=== PATIENT | female | born 1970 | race African-American/Black ===

== ENCOUNTER 2017-12-10 21:00 | Observation (INO) | payer MEDICAID, SELFPAY ==
[2017-12-10 22:01] LABS: #Basophils 0.1 thou/uL (0.0-0.2); #Eosinphils 0.1 thou/uL (0.0-0.7); #Monocytes 0.5 thou/uL (0.11-0.59); #Neutrophils 5.7 thou/uL (1.40-6.50); %Eosinophils 1.3 % (0.0-10.0); %Monocytes 5.9 % (0.0-10.0); %Neutrophils 67.9 % (42.0-75.0); Hemoglobin 10.6 g/dL (12.0-16.0); Mean Corpuscular HGB CONC 33.7 g/dL (32.0-36.0); Mean Corpuscular Hemoglobin 33.7 pg (27.0-31.0); Platelet Count 317 thou/uL (130-400); RBC Distribution Width 13.2 % (11.5-14.5); Red Blood Cell (RBC) Count 3.14 mill/uL (4.20-5.40); White Blood Cell (WBC) Count 8.4 thou/uL (4.8-10.8)
--- NOTE | 2017-12-10 22:22 | RAD ---
RIGHT KNEE FOUR VIEWS 12/10/17 HISTORY: Pain. Swelling. FINDINGS: Joint spaces are preserved. No joint effusion. No fracture. No malalignment. IMPRESSION: Unremarkable four views right knee. POS: [facility]
[2017-12-10 22:23] LABS: ALT (SGPT) 16 U/L (8-55); AST (SGOT) 34 U/L (5-34); Albumin 4.2 g/dL (3.5-5.0); Alkaline Phosphatase 190 U/L (40-150); Anion Gap 20 mmol/L (10-20); BUN (Urea Nitrogen) 24 mg/dL (7.0-18.7); Bilirubin, Total 0.3 mg/dL (0.2-1.2); Calc. Creatinine Clearance 0 mL/min (70-130); Calcium 7.4 mg/dL (7.8-10.44); Carbon Dioxide 14 mmol/L (22-29); Chloride 108 mmol/L (98-107); Estimated GFR-MDRD 30; Globulin 3.9 g/dL (2.4-3.5); Glucose 71 mg/dL (70-105); Potassium 4.1 mmol/L (3.5-5.1); Protein, Total 8.1 g/dL (6.0-8.3); Sodium 138 mmol/L (136-145)
[2017-12-10] MEDS ORDERED: Acetaminophen 325 MG TAB ONE (22:24)
--- NOTE | 2017-12-10 22:24 | RAD ---
RIGHT ANKLE THREE VIEWS: 12/10/17 HISTORY: Pain. Swelling. COMPARISON: 05/19/14 FINDINGS: Chronic changes of the right ankle. There is sclerosis of the talar dome with flattening and lucency along the talar dome, unchanged. Stable degenerative changes of the talonavicular joint space. An acu te fracture is not appreciated. IMPRESSION: Chronic changes as above. POS: [facility]
--- NOTE | 2017-12-10 22:25 | RAD ---
LEFT KNEE FOUR VIEWS 12/10/17 HISTORY: Pain. Swelling. FINDINGS: Joint space is preserved. No joint effusion. No fracture or malalignment. IMPRESSION: Unremarkable four views left knee. POS: [facility]
--- NOTE | 2017-12-10 22:25 | RAD ---
RIGHT TIBIA AND FIBULA TWO VIEWS 12/10/17 HISTORY: Swelling and pain. COMPARISON: None. FINDINGS: Distal tibia and fibula are included on the ankle radiograph. Visualized right tibia and fibula do no t identify a fracture. No periosteal reaction. IMPRESSION: Unremarkable exam. POS: [facility]
[2017-12-10 22:26] LABS: CKMB 0.8 ng/mL (0-6.6); Troponin I Less than 0.010 ng/mL (< 0.028)
--- NOTE | 2017-12-10 22:26 | RAD ---
TWO VIEWS LEFT TIBIA AND FIBULA 12/10/17 HISTORY: Pain and swelling. COMPARISON: None. FINDINGS: No fracture. No cortical irregularity. No periosteal reaction. IMPRESSION: Unremarkable two views left tibia and fibula. POS: [facility]
[2017-12-11] MEDS ORDERED: hydrALAZINE 20 MG/ML VIAL SLOW IVP PRN (02:17)
[2017-12-11] MEDS ORDERED: Zolpidem Tartrate 5 MG TAB PO SCH (02:30)
[2017-12-11] MEDS ORDERED: Chloraseptic Spray 180 ml Bottle PO PRN (02:47)
[2017-12-11] MEDS ORDERED: Ondansetron ODT 4 MG TAB PO PRN (02:47)
[2017-12-11] MEDS ORDERED: Eucerin (Mineral Oil/Petrolatum,White) 30 gm Jar TOP PRN (02:47)
[2017-12-11] MEDS ORDERED: Milk Of Magnesia 30 ML UDCUP PO PRN (02:47)
[2017-12-11] MEDS ORDERED: Ondansetron HCl/PF 4 MG/2 ML Vial IVP PRN (02:47)
[2017-12-11] MEDS ORDERED: Artificial Tears 18 DROP/0.9 ML EA EYE PRN (02:47)
[2017-12-11] MEDS ORDERED: HYDROcodone/Acetaminophen 5/325 mg Tablet PO PRN (02:47)
[2017-12-11] MEDS ORDERED: Sodium Chloride 0.65% Nasal 44 ML BOT EA NARE PRN (02:47)
[2017-12-11] MEDS ORDERED: Diabetic Tussin 200 MG/10 ML UDCUP PO PRN (02:47)
[2017-12-11] MEDS ORDERED: cloNIDine 0.1 MG TAB PO PRN (02:47)
[2017-12-11] MEDS ORDERED: Mag-Al 1200 mg/1200 mg/30 ML UDCUP PO PRN (02:47)
[2017-12-11] MEDS ORDERED: Loperamide HCl 2 MG CAP PO PRN (02:47)
[2017-12-11] MEDS ORDERED: Loratadine 10 MG TAB PO PRN (02:47)
[2017-12-11] MEDS ORDERED: Acetaminophen 325 MG TAB PO PRN (02:47)
[2017-12-11] MEDS ORDERED: Senokot 8.6 MG TAB PO PRN (02:47)
--- NOTE | 2017-12-11 03:32 | HP ---
PRIMARY CARE PHYSICIAN: [facility]. REASON FOR ADMISSION: Hypertensive urgency, soft tissue tumor, acute on chronic kidney failure, meta bolic acidosis. HISTORY OF PRESENT ILLNESS: A 47-year-old -[place] female who initially came to the emergenc y room with complaint of bilateral lower extremity swelling around the knee for about 1 month, size w as gradually increasing and she noticed overlying discoloration. With walking, she was feeling uncom fortable feeling and that is why she came to the emergency room for checkout. When she came to the E R, she was hypertensive. Her blood pressure was 215/130. She was also found with acute on chronic k idney failure based on routine blood test and that is why we decided to keep this patient in the hosp ital for observation. In the emergency room, they tried to do knee x-ray; tibia, fibula x-ray, and a nkle x-ray. Everything was unremarkable for bony pathology. The patient denies any UTI symptoms. She denies any constipation, diarrhea, melena, hematochezia. S he denies any weight loss. She denies any night sweats. She denies any fever or chills. She denies any trauma. She denies any headache. She denies any focal motor or sensory symptoms. REVIEW OF SYSTEMS: The following complete review of systems was negative, unless otherwise mentioned in the HPI or below: Constitutional: Weight loss or gain, ability to conduct usual activities. Skin: Rash, itching. Eyes: Double vision, pain. ENT/Mouth: Nose bleeding, neck stiffness, pain, tenderness. Cardiovascular: Palpitations, dyspnea on exertion, orthopnea. Respiratory: Shortness of breath, wheezing, cough, hemoptysis, fever or night sweats. Gastrointestinal: Poor appetite, abdominal pain, heartburn, nausea, vomiting, constipation, or diarr hea. Genitourinary: Urgency, frequency, dysuria, nocturia. Musculoskeletal: Pain, swelling. Neurologic/Psychiatric: Anxiety, depression. Allergy/Immunologic: Skin rash, bleeding tendency. Please see my HPI for pertinent positives and negatives. All other review of systems reviewed and ne gative except as mentioned in the HPI. ALLERGIES: No known drug allergies. CURRENT HOME MEDICATIONS: The patient is taking Tylenol p.r.n. basis. PAST MEDICAL HISTORY: Patient denies any previous medical history. She does not know any medical pr oblem. PAST SURGICAL HISTORY: Cholecystectomy, tubal ligation. PAST PSYCHIATRIC HISTORY: Anxiety and depression. SOCIAL HISTORY: Patient denies any tobacco, alcohol, or illicit drug abuse. FAMILY HISTORY: No strong family history of premature coronary artery disease, stroke, or cancer. N o family history of renal disorder. EMERGENCY ROOM COURSE: Patient was given IV fluids and Tylenol 650 mg. PHYSICAL EXAMINATION: VITAL SIGNS: On arrival, blood pressure 215/130, pulse 111, respiratory rate 28, temperature 98.3, s aturation 99% on room air, weight 72.5 kilograms. GENERAL: Patient is currently alert, awake, no obvious acute distress. HEENT: Normocephalic, atraumatic. Eyes: Pupils are round, reactive to light. Extraocular muscles intact. ENT: Oropharynx within normal limits. Moist mucous membranes. No oral lesions. No pharyngeal eryt ashvin, no exudate. NECK: Supple, no JVD, no thyromegaly, no carotid bruit, no jugular venous distention. LUNGS: Clear to auscultation without any rhonchi or rales. CARDIAC: S1, S2 regular without any murmur. ABDOMEN: Soft, bowel sounds present, nontender, nondistended. No organomegaly, no mass, no suprapub ic tenderness. BACK: Unremarkable, no CVA tenderness. EXTREMITIES: Upper extremity passive movement of all joints are normal. Lower extremity: Patient d oes have soft tissue swelling with discoloration of skin about baseball size or around the right knee on the medial aspect as similarly small sized soft tissue tumor also noticed on the left knee medial aspect. NEUROLOGIC: Nonfocal examination. Patient moves all 4 limbs, plantar bilateral flexor. SKIN: No skin rash. HEMATOLOGICAL: No lymphadenopathy. PSYCHIATRIC: Normal affect. SIGNIFICANT LABS: Knee x-ray showed no acute intraarticular process tibia, fibula x-ray was negative for any fracture or dislocation, ankle x-ray negative for any acute process, chronic changes. CBC: WBC 8.4, hemoglobin 10.6, MCV 100, platelet 317. ESR 55. BMP: Sodium 138, potassium 4.1, chloride 108, carbon dioxide 14, anion gap 20, BUN 24, creatinine 2.14, glucose 71, calcium 7.4. LFT: AST 3 4, ALT 16, alkaline phosphatase 190, albumin 4.2. CK-MB 0.8, troponin I less than 0.010. CRP 1.04. ASSESSMENT AND PLAN: IMPRESSION: 1. Hypertensive urgency. This patient does not have any known hypertension and her blood pressure i s significantly elevated. At this point, I am starting amlodipine 5 mg p.o. daily. We will use hydr alazine, clonidine on p.r.n. basis. During this admission, we will monitor her vital signs more freq uently and adjust antihypertensive medication. 2. Acute on chronic kidney failure. Looking at her old records, patient's creatinine is running in 1.4 or 1.5 range. Now her creatinine is 2.14. I am suspecting this is chronic worsening of renal fa ilure from hypertensive nephrosclerosis. Patient already received IV fluid. We will hold on IV flui d for now. We will check urinalysis, urine sodium, creatinine, protein, and will recheck a renal fun ction panel tomorrow. We will also check PTH to rule out any secondary hyperparathyroidism. 3. Soft tissue tumor around knee. We will do ultrasound. I am suspecting lipoma. Currently, cristhian santoyo does not have any compressive symptoms. Patient does not need any acute surgical intervention. 4. Microcytic anemia. We will start folic acid, vitamin B12, and ferrous sulfate. 5. Metabolic acidosis with normal anion gap. We will start sodium bicarbonate 325 mg p.o. b.i.d. W e will also check JAXON and urine drug screen. 6. Deep venous thrombosis prophylaxis not needed because we are expecting discharge in 24 hours. 7. Gastrointestinal prophylaxis, Pepcid 20 mg p.o. daily. CODE STATUS: The patient is FULL CODE. Patient does not have any surrogate decision maker. Disposition plan based on clinical course, likely 24 to 48 hours. Plan of care discussed with the terence pickard in detail.
[2017-12-11 05:01] LABS: #Basophils 0.1 thou/uL (0.0-0.2); #Eosinphils 0.1 thou/uL (0.0-0.7); #Monocytes 0.5 thou/uL (0.11-0.59); %Basophils 0.9 % (0.0-1.0); %Eosinophils 1.5 % (0.0-10.0); %Lymphocytes 30.6 % (21.0-51.0); %Monocytes 7.4 % (0.0-10.0); %Neutrophils 59.6 % (42.0-75.0); Hemoglobin 9.1 g/dL (12.0-16.0); Mean Corpuscular HGB CONC 33.8 g/dL (32.0-36.0); Mean Corpuscular Hemoglobin 33.5 pg (27.0-31.0); Mean Corpuscular Volume 99.2 fl (81.0-99.0); Platelet Count 259 thou/uL (130-400); RBC Distribution Width 13.2 % (11.5-14.5); Red Blood Cell (RBC) Count 2.71 mill/uL (4.20-5.40); White Blood Cell (WBC) Count 6.7 thou/uL (4.8-10.8)
[2017-12-11 05:04] LABS: Bilirubin Negative (Negative); Blood, Urine Negative (Negative); Clarity CLEAR (Clear); Glucose, Urine (Dipstick) Negative (Negative); Leukocyte Negative (Negative); Nitrite Negative (Negative); Protein, Urine (Dipstick) 30 mg/dL (Neg-Trace); Specific Gravity, Urine 1.009 (1.002-1.036); Urobilinogen 0.2 mg/dL (0.2-1.0)
[2017-12-11 05:07] LABS: Bacteria/HPF None Seen HPF (None Seen); Hyaline Casts/LPF 0-3 HYALINE CAST LPF (0-3 Hyaline); RBC/HPF 0-3 HPF (0-3); Squamous Epithelial None Seen HPF (0-3); WBC/HPF None Seen HPF (0-3)
[2017-12-11 05:13] LABS: Amphetamine Not Detected (NotDetected); Barbiturates Screen Not Detected (NotDetected); Benzodiazepine Screen Not Detected (NotDetected); Cocaine Metabolite Screen Not Detected (NotDetected); Medtox Control Line Valid? VALID (VALID); Medtox Reader # READER 1; Methadone Not Detected (NotDetected); Methamphetamine Not Detected (NotDetected); Opiate Screen Detected (NotDetected); Oxycodone Screen Not Detected (NotDetected); Phencyclidine (PCP) Not Detected (NotDetected); THC/Cannabinoid Screen Not Detected (NotDetected); Tricyclic Screen Not Detected (NotDetected)
[2017-12-11 05:21] LABS: Creatinine, Urine 21.25 mg/dL (47-110)
[2017-12-11 05:25] LABS: Albumin 3.7 g/dL (3.5-5.0); Anion Gap 14 mmol/L (10-20); BUN (Urea Nitrogen) 25 mg/dL (7.0-18.7); BUN/Creatinine Ratio 12.69; Calc. Creatinine Clearance 0 mL/min (70-130); Calcium 7.1 mg/dL (7.8-10.44); Carbon Dioxide 21 mmol/L (22-29); Cardiac Risk 3.3 (Less than 4.5); Chloride 112 mmol/L (98-107); Cholesterol 200 mg/dl (< 200 Desired); Estimated GFR-MDRD 33; Glucose 97 mg/dL (70-105); HDL Cholesterol 60 mg/dL (>60 Neg Risk); Phosphorus 4.2 mg/dL (2.3-4.7); Potassium 3.2 mmol/L (3.5-5.1); Sodium 144 mmol/L (136-145); Triglycerides 418 mg/dL (Less than 150)
[2017-12-11 05:30] LABS: CKMB 0.6 ng/mL (0-6.6); Troponin I Less than 0.010 ng/mL (< 0.028)
[2017-12-11 08:16] LABS: Magnesium 1.2 mg/dL (1.6-2.6)
[2017-12-11] MEDS: Potassium Chloride 20 MEQ TAB PO SCH ×2 (08:34→17:21)
[2017-12-11] MEDS: Ferrous Sulfate 325 MG TAB PO SCH (08:34)
[2017-12-11] MEDS: Folic Acid 1 MG TAB PO SCH (08:35)
[2017-12-11] MEDS: Sodium Bicarbonate Tab 325 MG TAB PO SCH ×2 (08:35→21:24)
[2017-12-11] MEDS: Cyanocobalamin (Vitamin B-12) 1,000 MCG TAB PO SCH (08:35)
[2017-12-11] MEDS: Amlodipine 5 MG TAB PO SCH (08:36)
[2017-12-11] MEDS: Famotidine 20 MG TAB PO SCH (08:36)
[2017-12-11] MEDS ORDERED: Amlodipine 10 MG TAB PO SCH (09:00)
--- NOTE | 2017-12-11 10:14 | ULT ---
ULTRASOUND SOFT TISSUE OTHER: Date: 12/11/17 HISTORY: Lower extremity edema. FINDINGS: There is no significant suprapatellar joint effusion. IMPRESSION: No significant joint effusion in the knee. MRI is recommended for internal derangement if clinically suggested. POS: [facility]
[2017-12-11] MEDS ORDERED: Metoprolol Tartrate 25 MG TAB PO SCH ×2 (17:15→21:00)
[2017-12-11] MEDS: Sodium Chloride 0.45% 1,000 ML IV SCH (17:26)
[2017-12-11] MEDS ORDERED: Melatonin 3 MG TAB PO PRN (18:53)
[2017-12-11] MEDS ORDERED: FLU VACC QS2017-18 36 mo. & older 0.5 ML SYRINGE IM ONE (21:00)
--- NOTE | 2017-12-11 22:01 | CON ---
DATE OF CONSULTATION: 12/11/2017 CONSULTING PHYSICIAN: Sharon Gupta MD REASON FOR CONSULTATION: Acute kidney injury. REASON FOR ADMISSION: Hypertensive urgency. HISTORY OF PRESENT ILLNESS: A 47-year-old -[place]ib[place] female with history of hypertension came into the hospital with knee pain, knee problem, and knee swelling; has been treated for that. She wa s found to have blood pressure of 215/130. No nausea or vomiting. No chest pain or palpitation. PAST MEDICAL HISTORY: Positive for hypertension. PAST SURGICAL HISTORY: Cholecystectomy, tubal ligation. HOME MEDICATIONS: None. ALLERGIES: No known drug allergies. SOCIAL HISTORY: She drinks beer occasionally. No tobacco or illicit drug abuse. FAMILY HISTORY: Positive for kidney disease. REVIEW OF SYSTEMS: The following complete review of systems was negative, unless otherwise mentioned in the HPI or below: Constitutional: Weight loss or gain, ability to conduct usual activities. Skin: Rash, itching. Eyes: Double vision, pain. ENT/Mouth: Nose bleeding, neck stiffness, pain, tenderness. Cardiovascular: Palpitations, dyspnea on exertion, orthopnea. Respiratory: Shortness of breath, wheezing, cough, hemoptysis, fever or night sweats. Gastrointestinal: Poor appetite, abdominal pain, heartburn, nausea, vomiting, constipation, or diarr hea. Genitourinary: Urgency, frequency, dysuria, nocturia. Musculoskeletal: Pain, swelling. Neurologic/Psychiatric: Anxiety, depression. Allergy/Immunologic: Skin rash, bleeding tendency. PHYSICAL EXAMINATION: GENERAL: This is a thin-built female in no apparent distress. VITAL SIGNS: Temperature 98.7, pulse 119, respiratory rate 18, blood pressure 123/94. HEENT: Atraumatic, normocephalic. Oral mucosa is moist. NECK: Supple. CARDIOVASCULAR: S1, S2 heard. Rate and rhythm normal. RESPIRATORY: Clear. ABDOMEN: Soft. MUSCULOSKELETAL: 1+ edema. DERMATOLOGIC: No skin rash. NEUROLOGIC: Alert, awake. PSYCHIATRIC: Mood and affect. LABORATORY DATA: Creatinine is 1.9. PTH is 859. Hemoglobin is 9.1. ASSESSMENT: 1. Acute kidney injury on chronic kidney disease stage 3. Renal function is slightly better. Victor Manuel nue supportive care. Avoid nephrotoxins. 2. Hypokalemia, replaced. 3. Acidosis, most likely metabolic. 4. Secondary hyperparathyroidism. We will check vitamin D level and phosphorus level. Phosphorus l evel was controlled. 5. Anemia, most likely from chronic disease. 6. Hypertension. 7. Proteinuria, most likely from hypertension, around 1 gram. PLAN: Continue supportive care including IV fluids and avoid nephrotoxins, renally dose all the medi cines. Control blood pressure. Control pain and we will continue to follow. We will check vitamin D level in the morning. We will replace potassium. Currently on sodium bicarbonate orally. Thank you for the consult.
[2017-12-12] MEDS: Sodium Chloride 0.45% 1,000 ML IV SCH ×2 (00:26→09:26)
[2017-12-12 05:28] LABS: Anion Gap 15 mmol/L (10-20); BUN (Urea Nitrogen) 22 mg/dL (7.0-18.7); Calc. Creatinine Clearance 0 mL/min (70-130); Calcium 7.3 mg/dL (7.8-10.44); Carbon Dioxide 18 mmol/L (22-29); Chloride 112 mmol/L (98-107); Estimated GFR-MDRD 29; Glucose 107 mg/dL (70-105); Potassium 3.6 mmol/L (3.5-5.1); Sodium 141 mmol/L (136-145)
[2017-12-12 05:47] LABS: Band 1 % (5-11); Hemoglobin 11.1 g/dL (12.0-16.0); Lymphocytes 15 % (21-51); MDiff Complete? YES; Macrocytosis MODERATE=16-30 cells (100X) (0-5/hpf); Mean Corpuscular HGB CONC 31.6 g/dL (32.0-36.0); Mean Corpuscular Hemoglobin 32.1 pg (27.0-31.0); Mean Platelet Volume 8.5 fL (7.4-10.4); Monocytes 9 % (0-10); Neutrophil 75 % (42-75); PLT Morphology Comment Appears Adequate; Platelet Count 230 thou/uL (130-400); RBC Distribution Width 13.8 % (11.5-14.5); Red Blood Cell (RBC) Count 3.45 mill/uL (4.20-5.40); White Blood Cell (WBC) Count 6.8 thou/uL (4.8-10.8)
[2017-12-12] MEDS ORDERED: Metoprolol Tartrate 25 MG TAB PO SCH (09:00)
--- NOTE | 2017-12-12 09:10 | ULT ---
ULTRASOUND BILATERAL RENAL STANDARD: HISTORY: CKD stage III. COMPARISON: None. FINDINGS: The renal echotexture is increased bilaterally. There is poor corticomedullary differentiation. Tereso ateral renal cysts. The right kidney measures 11 x 5.9 x 4.2 cm. The left kidney measures 8.2 x 4.7 x 4.3 cm. Urinary bladder wall is mildly trabeculated. IMPRESSION: 1. Echogenic kidney suggesting chronic medical renal disease. 2. Bilateral renal cysts. POS: [facility]
[2017-12-12] MEDS: Potassium Chloride 20 MEQ TAB PO SCH (09:29)
[2017-12-12] MEDS: Amlodipine 5 MG TAB PO SCH (09:29)
[2017-12-12] MEDS: Ferrous Sulfate 325 MG TAB PO SCH (09:29)
[2017-12-12] MEDS: Sodium Bicarbonate Tab 325 MG TAB PO SCH (09:30)
[2017-12-12] MEDS: Folic Acid 1 MG TAB PO SCH (09:30)
[2017-12-12] MEDS: Cyanocobalamin (Vitamin B-12) 1,000 MCG TAB PO SCH (09:30)
[2017-12-12] MEDS: Famotidine 20 MG TAB PO SCH (09:30)
--- NOTE | 2017-12-12 10:02 | PRG ---
DATE OF SERVICE: 12/12/2017 SUBJECTIVE: This is a very pleasant 47-year-old female being seen for acute kidney injury. The amanda ent denies any nausea, vomiting or chest pain. PHYSICAL EXAMINATION: GENERAL: Patient is awake, alert. VITAL SIGNS: Afebrile, pulse 90, breathing at 16, blood pressure 137/95. OBJECTIVE: See above. Awake, alert, in no acute distress. GENERAL APPEARANCE AND MENTAL STATUS: Fair. HEAD/NECK: Normocephalic. Atraumatic. EYES: EOMI. No deformity. EARS: Clear. No ulcers. NOSE: Intact. No lesions. MOUTH: Clear. No discharge. THROAT: Clear. No exudate. LUNGS: Clear. No crackles. CARDIAC: S1, S2. No rub. ABDOMEN: Benign. BS+. GENITALIA/RECTUM: Ortez absent. BACK/EXTREMITIES: Edema 0+ Ulcer- NEUROLOGICAL: Alert and motor intact. SKIN: Rash- Bruise- LYMPHATICS: Edema- Ulcer- LABORATORY: Hemoglobin 11.1, bicarbonate 18, creatinine 2.2. ASSESSMENT AND RECOMMENDATIONS: 1. Chronic kidney disease stage 4, most likely due to hypertensive nephrosclerosis. 2. Hypertension, stable. 3. Anemia, stable. 4. Metabolic acidosis, stable. No indication for dialysis at this time.
[2017-12-12 12:33] VITALS: BP 116/79; TEMP 98
[2017-12-12] MEDS ORDERED: Atorvastatin Calcium 40 MG TAB PO SCH (21:00)
[2017-12-13 09:20] LABS: Antinuclear AB Positive (Negative); Smith Antibodies <0.2 AI (0.0-0.9); U1RNP/snRNP IGG Autoabs <0.2 AI (0.0-0.9)
--- NOTE | 2017-12-13 13:10 | DIS ---
DATE OF ADMISSION: 12/11/2017 DATE OF DISCHARGE: 12/12/2017 CONDITION AT DISCHARGE: Stable and improved. DISCHARGE DIAGNOSES: Hypertension, chronic kidney disease, microcytic anemia. MEDICATIONS ON DISCHARGE: Amlodipine 5 mg p.o. daily, atorvastatin 40 mg p.o. at bedtime, cyanocobal kitchen 1000 mcg p.o. daily, famotidine 20 mg p.o. daily, ferrous sulfate 325 mg p.o. q.a.m., Folic acid 1 mg p.o. daily, metoprolol tartrate 12.5 mg p.o. b.i.d., sodium bicarbonate 325 mg p.o. b.i.d. HISTORY OF PRESENT ILLNESS: This is a 47-year-old -Hung[place] female, who had initially came to the emergency room complaining of bilateral lower extremities swelling around the knee for about 1 m onth, site of which was gradually increasing and she noted overlying discoloration. At the ER, she w as found to be markedly hypertensive with blood pressure 215/130. She was also found to be in SABAS on CKD, and so she was admitted for further workup. X-ray of her knee, tibia, fibula, and ankles were unremarkable for any bony pathology. She also had an ultrasound of the soft tissues, which was unrev ealing. HOSPITAL COURSE: For her hypertensive urgency, she was started on p.o. medications with amlodipine 5 mg daily. She was also placed on hydralazine parenterally p.r.n. as well as p.o. clonidine p.r.n. High blood pressure was eventually well controlled and she was discharged on amlodipine and metoprolo l. She also had a lipid profile, which was abnormal and was started on lovastatin. In addition, she was started on parenteral fluids for SABAS on CKD with some improvement in her renal function. Nephro logy was consulted and no indication for urgent dialysis. She will follow up with chef concierge on an outpatient basis. She also had a TTE due to tachycardia on arrival, which was unremarkable. There were no valvular abnormalities. Also, she had metabolic acidosis on arrival, which is likely due to her worsening renal function and she was placed on oral sodium bicarbonate. On the day of discharge, patient was stable. She had no complaints. Blood pressure was well controlled and [facility] CONSULTS: Nephrology. PHYSICAL EXAMINATION: The patient was examined on the day of discharge. CONSTITUTIONAL: Not in acute distress. HEENT: PERRLA. Moist mucous membranes. EOMI. Sclerae are anicteric. NECK: Supple, with full range of movement. RESPIRATORY: No wheezes, rales, or rhonchi. LUNGS: Clear to auscultation bilaterally. CARDIOVASCULAR: Regular rate and rhythm with no significant murmurs, rubs, or gallops. GASTROINTESTINAL: Soft, nontender, nondistended with positive bowel sounds. MUSCULOSKELETAL: No edema with pulses present. NEUROLOGIC: Nonfocal. Moves all extremities spontaneously. PSYCHIATRIC: Normal affect. Alert and oriented x3. SKIN: No rashes or turgor. DIET: Renal diet. ACTIVITY: To resume as tolerated. CARE GOALS: The patient is to follow up with her primary care physician within 1 week of discharge. FOLLOWUP: Discharged to home. Total time of discharge including documentation and chart review 65 minutes. Of note, the patient al so had a renal ultrasound, which showed medical renal disease.
== END 2017-12-12 13:28 | disposition home or self-care (01) ==
LOC: ERS 21:00 → 2SW 12-11 01:13
PROVIDERS: ADMIT Internal Medicine; ATTEND Internal Medicine
DX: I16.0 Hypertensive urgency (principal); I12.9 Hypertensive chronic kidney disease with stage 1 through stage 4 chronic kidney disease, or unspecified chronic kidney disease; N18.3 Chronic kidney disease, stage 3 (moderate); N17.9 Acute kidney failure, unspecified; D63.1 Anemia in chronic kidney disease; E87.6 Hypokalemia; E87.2 Acidosis; N25.81 Secondary hyperparathyroidism of renal origin; R80.9 Proteinuria, unspecified; M79.89 Other specified soft tissue disorders; F41.9 Anxiety disorder, unspecified; F32.9 Major depressive disorder, single episode, unspecified; Z90.49 Acquired absence of other specified parts of digestive tract
CPT/HCPCS: 36415; 76770; 76999; 80048; 80053; 80061; 80069; 80306; 81001; 82306; 82553; 82570; 83735; 83970; 84156; 84300; 84443; 84484; 85025; 85652; 86038; 86140; 90471; 90682; 93005; 93306; 96360; 96361; G0008; G0378; Q2036

== ENCOUNTER 2018-04-23 13:43 | Inpatient (IN) | payer MEDICAID, SELFPAY ==
[2018-04-23 14:18] LABS: #Eosinphils 0.1 thou/uL (0.0-0.7); #Lymphocytes 1.5 thou/uL (1.20-3.40); #Neutrophils 6.4 thou/uL (1.40-6.50); %Basophils 0.4 % (0.0-1.0); %Eosinophils 0.9 % (0.0-10.0); %Lymphocytes 16.5 % (21.0-51.0); %Neutrophils 71.1 % (42.0-75.0); Hemoglobin 10.2 g/dL (12.0-16.0); Mean Corpuscular HGB CONC 34.8 g/dL (32.0-36.0); Mean Corpuscular Hemoglobin 34.9 pg (27.0-31.0); Mean Platelet Volume 7.8 fL (7.4-10.4); Platelet Count 303 thou/uL (130-400); RBC Distribution Width 13.2 % (11.5-14.5); Red Blood Cell (RBC) Count 2.94 mill/uL (4.20-5.40)
[2018-04-23] MEDS ORDERED: Nitroglycerin 0.4 MG TAB (25 Tab Bottle) ONE (14:29)
[2018-04-23 14:39] LABS: ALT (SGPT) 35 U/L (8-55); AST (SGOT) 58 U/L (5-34); Albumin 4.1 g/dL (3.5-5.0); Alkaline Phosphatase 187 U/L (40-150); Anion Gap 21 mmol/L (10-20); BUN (Urea Nitrogen) 20 mg/dL (7.0-18.7); Bilirubin, Total 0.4 mg/dL (0.2-1.2); Calc. Creatinine Clearance 0 mL/min (70-130); Calcium 6.8 mg/dL (7.8-10.44); Carbon Dioxide 14 mmol/L (22-29); Chloride 112 mmol/L (98-107); Estimated GFR-MDRD 25; Globulin 3.9 g/dL (2.4-3.5); Glucose 102 mg/dL (70-105); Lipase 54 U/L (8-78); Potassium 3.5 mmol/L (3.5-5.1); Sodium 143 mmol/L (136-145)
--- NOTE | 2018-04-23 14:41 | RAD ---
CHEST 1 VIEW: HISTORY: Chest and abdomen pain. FINDINGS: Cardiac silhouette and pulmonary vasculature are unremarkable. Mediastinum is midline. No confluent airspace consolidation or evidence of pneumothorax. No evidence of free subdiaphragmatic gas. IMPRESSION: No active cardiopulmonary abnormalities are demonstrated. POS: [facility]
[2018-04-23 14:50] LABS: Bilirubin Negative (Negative); Blood, Urine Negative (Negative); Clarity CLOUDY (Clear); Glucose, Urine (Dipstick) Negative (Negative); Leukocyte Negative (Negative); Nitrite Negative (Negative); Protein, Urine (Dipstick) 30 mg/dL (Neg-Trace); Specific Gravity, Urine 1.014 (1.002-1.036); Urobilinogen 0.2 mg/dL (0.2-1.0); pH, Urine 5.5 (5.0-9.0)
[2018-04-23 14:53] LABS: Bacteria/HPF None Seen HPF (None Seen); Hyaline Casts/LPF 4-6 HYALINE CAST LPF (0-3 Hyaline); Pathc Cast-AUWi Flag 1.01 (0-2.49); Squamous Epithelial 0-3 HPF (0-3); WBC/HPF 0-3 HPF (0-3)
[2018-04-23 14:56] LABS: Yeast-AUWi Flag 58.7 (0-25.0)
[2018-04-23 15:04] LABS: RBC/HPF 0-3 HPF (0-3)
[2018-04-23] MEDS ORDERED: Nitroglycerin 2% Ointment 1 INCH/1 GM Packet ONE (15:25)
[2018-04-23 16:06] LABS: CKMB 0.7 ng/mL (0-6.6); Troponin I Less than 0.010 ng/mL (< 0.028)
--- NOTE | 2018-04-23 16:29 | CT ---
CT ABDOMEN AND PELVIS NONCONTRAST: History: Right flank pain. FINDINGS: There is prominent distention of the left renal pelvis and calices. The ureter is decompressed. No st one or soft tissue mass filling defect is apparent. Right renal collecting system, ureter and urinary bladder are decompressed without stone apparent. Lack of contrast limits evaluation for other abnormalities. There is reflux material within the esoph kelin. Gallbladder is surgically absent. Well circumscribed fluid density and hyperdense lesions assoc iated with each kidney have the appearance of cysts. No evidence of bowel obstruction. Degenerative c hanges lumbar spine. IMPRESSION: 1. Left hydronephrosis favored to represent congenital long-standing UPJ obstruction. No acute proces s is suspected. No stones visible. 2. Gastroesophageal reflux. 3. Status post cholecystectomy. 4. Bilateral renal hyperdense and simple cysts. POS: [facility]
[2018-04-23 17:37] LABS: Troponin I Less than 0.010 ng/mL (< 0.028)
[2018-04-23 20:39] LABS: Troponin I Less than 0.010 ng/mL (< 0.028)
[2018-04-23 22:20] VITALS: BMI 24.5
[2018-04-23] MEDS: Acetaminophen 325 MG TAB PO PRN (23:33)
--- NOTE | 2018-04-24 09:02 | ULT ---
ULTRASOUND ABDOMEN: HISTORY: Abdominal pain, cholecystectomy in 2011. FINDINGS: The liver, spleen, visualized portions of the pancreas, aorta, and IVC are unremarkable. The patient is post cholecystectomy. The common duct measures 12 mm in diameter. The kidneys are bi laterally echogenic with bilateral multiple cysts. There is dilatation of the left renal pelvis/hydr onephrosis versus parapelvic cyst. A contrast-enhanced CT scan using the hematuria protocol would be helpful. No free fluid is seen. IMPRESSION: 1. Status post cholecystectomy with dilated common bile duct. 2. Bilateral echogenic kidneys with bilateral cysts. Dilated left renal pelvis/hydronephrosis versu s parapelvic cyst. A CT scan with and without IV contrast using the hematuria protocol would be help ful. POS: [facility]
--- NOTE | 2018-04-24 10:27 | HP ---
REASON FOR ADMISSION/CHIEF COMPLAINT: Chest pain. HISTORY OF PRESENT ILLNESS: Mr. Taylor is a 47-year-old female with past medical his tory of hypertension who came in with pain in the chest that started a couple of days before, actuall y a week before. It is on and off. The pain is pressure-like in the left sternal area at the left s maddie of the chest, but no diaphoresis, no nausea. No shortness of breath. The pain is nonradiating. The patient also states she has some abdominal pain, right upper quadrant which is sharp in nature. No nausea or vomiting. The patient decided to come to the hospital because the pain was not going a way. In the ER, the patient was evaluated and had normal cardiac enzymes and EKG. CT scan of the ab domen was done and it was unremarkable. She had a cholecystectomy before. The patient is admitted t o rule out myocardial infarction for risk factors. PAST MEDICAL HISTORY: 1. Hypertension. 2. Hyperlipidemia. 3. History also includes depression. 4. Chronic kidney disease stage 3. PAST SURGICAL HISTORY: 1. Status post cholecystectomy. 2. Status post tubal ligation. CURRENT MEDICATIONS: The patient is on Lipitor 40 mg daily, sodium bicarbonate 325 daily, folic acid 1 mg daily, ferrous sulfate daily, metoprolol 25 mg b.i.d., amlodipine 5 mg daily, Zoloft 50 mg tung y. ALLERGIES: No known drug allergies. FAMILY HISTORY: Nothing of interest. SOCIAL HISTORY: The patient lives with family. No history of alcohol intake. No history of smoking . REVIEW OF SYSTEMS: Unremarkable except for chest pain. PHYSICAL EXAMINATION: GENERAL: The patient is alert, awake, oriented x3. VITAL SIGNS: Temperature 98, pulse 90, respirations 20, blood pressure 116/70. HEENT: Normocephalic and atraumatic. Pupils equal and reactive. Nasopharynx is pale and dry. HEART: S1, S2 regular. RESPIRATORY: No wheezes. SKIN: Turgor decreased. NECK: Supple. No JVD. LUNGS: Bilateral air entry, no rales, no rhonchi. ABDOMEN: Soft, mildly tender in the right upper quadrant. No guarding. Normoactive bowel sounds. RECTAL: Deferred. CENTRAL NERVOUS SYSTEM: No focal deficits. LABORATORY: CBC shows WBC 9, hemoglobin 10, hematocrit 30, platelets 303. Metabolic panel; sodium 1 43, potassium 3.5, chloride 112, CO2 14, BUN 20, creatinine 2.5, glucose 102, alkaline phosphatase 18 7, AST 58. CK-MB 0.7, troponin I less than 0.010. BNP 101. Urinalysis is negative. Chest x-ray negative. EKG shows normal sinus rhythm. No acute ST-T wave changes seen. ASSESSMENT: 1. Chest pain, rule out myocardial infarction. 2. Right upper quadrant pain. 3. Hypertension. 4. History of depression. 5. Hyperlipidemia. 6. Chronic kidney disease, stage 3. 7. Chronic anemia. PLAN: 1. Vital signs q.4h. 2. Activity as tolerated. 3. Allergies; no known drug allergies. 4. Hep-Lock. 5. CK with troponin q.2h. x2. 6. Cardiolite stress test. 7. Abdominal ultrasound. 8. Continue home medications.
[2018-04-24] MEDS: Famotidine 20 MG TAB PO SCH (11:41)
[2018-04-24] MEDS: Folic Acid 1 MG TAB PO SCH (11:41)
[2018-04-24] MEDS: Cyanocobalamin (Vitamin B-12) 1,000 MCG TAB PO SCH (11:42)
[2018-04-24] MEDS: Ferrous Sulfate 325 MG TAB PO SCH (11:42)
[2018-04-24] MEDS: Acetaminophen 325 MG TAB PO PRN (12:41)
[2018-04-24] MEDS: Amlodipine 5 MG TAB PO SCH (13:33)
--- NOTE | 2018-04-24 13:50 | NM ---
CARDIAC SPECT: CLINICAL HISTORY: 47-year-old black female with chest pain, hypertension, and dyslipidemia. TECHNIQUE: A myocardial perfusion scan was performed using the single isotope one day protocol with technetium-9 9m sestamibi. 10 mCi were injected intravenously for the rest exam followed by 27 mCi for the stress exam. Pharmacologic stress with Adenosine was monitored and interpreted by Dr. Douglass. FINDINGS: Homogeneous tracer distribution is seen in the myocardial segments on stress and rest images without fixed or reversible defects. GATED SPECT LVEF: 68%. WALL MOTION EXAM: Normal. IMPRESSION: Normal myocardial perfusion scan. POS: [facility]
[2018-04-24] MEDS: Metoprolol Tartrate 25 MG TAB PO SCH ×2 (14:05→20:48)
[2018-04-24] MEDS ORDERED: ADENOSINE 60 MG/20 ML VIAL ONE (14:25)
[2018-04-24] MEDS ORDERED: Atorvastatin Calcium 40 MG TAB PO SCH (21:00)
[2018-04-25] MEDS: Acetaminophen 325 MG TAB PO PRN ×2 (00:45→10:29)
[2018-04-25] MEDS ORDERED: Sodium Chloride 0.9% 10 ML ONE (08:13)
[2018-04-25] MEDS: Amlodipine 5 MG TAB PO SCH (09:38)
[2018-04-25] MEDS: Folic Acid 1 MG TAB PO SCH (09:39)
[2018-04-25] MEDS: Famotidine 20 MG TAB PO SCH (09:39)
[2018-04-25] MEDS: Metoprolol Tartrate 25 MG TAB PO SCH (09:39)
[2018-04-25 09:40] VITALS: BP 109/75
[2018-04-25] MEDS: Ferrous Sulfate 325 MG TAB PO SCH (09:40)
[2018-04-25] MEDS: Cyanocobalamin (Vitamin B-12) 1,000 MCG TAB PO SCH (09:40)
[2018-04-25 11:45] VITALS: TEMP 98.3
--- NOTE | 2018-04-26 02:14 | DIS ---
DATE OF ADMISSION: 04/23/2018 DATE OF DISCHARGE: 04/25/2018 ADMITTING DIAGNOSES: 1. Chest pain, rule out myocardial infarction. 2. Right upper quadrant pain. 3. Hypertension. 4. History of depression. 5. Hyperlipidemia. 6. Chronic kidney disease stage 3. 7. Chronic anemia. FINAL DIAGNOSES: 1. Chest pain. No evidence of acute myocardial infarction, negative Cardiolite stress test. 2. Right upper quadrant pain, resolved. Negative CT scan of the abdomen. 3. Hypertension. 4. Hyperlipidemia. 5. Chronic kidney disease stage 3. 6. Chronic anemia. 7. Chronic hydronephrosis on the left side with possible chronic UPJ obstruction, possible congenital. BRIEF SUMMARY OF HOSPITAL COURSE: Ms. Taylor is 47-1/3-year-old female admitted because of chest pain. The pain was in retrosternal area, nonradiating. She was admitted to rule out myocardial infarction . Serial cardiac enzymes were done that were within normal limits. A Cardiolite stress test was done and reported as negative for coronary ischemia. The patient also complained of abdominal pain, right upper quadrant. Abdominal ultrasound was done which revealed no evidence of any gallstones. She had a cholecystectomy before and left kidney showed hydronephrosis. She also had a CAT scan of the abdomen done which again showed left hydronephrosis, favored to represent congenital longstanding UPJ obstruction, no acute process. So in view of improvement, the patient is discharged. At the time of discharge, she was stable. Her vital signs were stable. Lungs were clear. Heart sounds regular. Abdomen is soft, nontender. Bowel sounds present. DISCHARGE MEDICATIONS: Include Tylenol p.r.n., amlodipine 5 mg daily, atorvastatin 40 mg daily, vitamin B12 daily, Pepcid 20 mg daily, ferrous sulfate 325 daily, folic acid 1 mg daily, metoprolol 12.5 b.i.d. DISCHARGE INSTRUCTIONS: The patient will come for followup next week and she will be referred to a director hedis regarding her chronic kidney disease and also possibly referred to an urologist regarding her left hydronephrosis. GILES
== END 2018-04-25 12:52 | disposition home or self-care (01) | DRG 313 ==
LOC: ERS 13:43 → 2NO 17:06
PROVIDERS: ADMIT Internal Medicine; ATTEND Internal Medicine
DX: R07.89 Other chest pain (principal); Q62.0 Congenital hydronephrosis; N18.3 Chronic kidney disease, stage 3 (moderate); E78.5 Hyperlipidemia, unspecified; I12.9 Hypertensive chronic kidney disease with stage 1 through stage 4 chronic kidney disease, or unspecified chronic kidney disease; R10.11 Right upper quadrant pain; D63.1 Anemia in chronic kidney disease; F32.9 Major depressive disorder, single episode, unspecified
CPT/HCPCS: 36415; 71045; 74176; 76700; 78452; 80053; 81003; 81015; 82553; 83690; 83880; 84484; 85025; 93005; 93017; 96374; A4216; A9500; J0153; J2270

== ENCOUNTER 2018-05-21 14:33 | Emergency (ER) | payer SELFPAY ==
[2018-05-21 15:10] LABS: #Basophils 0.1 thou/uL (0.0-0.2); #Lymphocytes 1.6 thou/uL (1.20-3.40); #Monocytes 0.4 thou/uL (0.11-0.59); #Neutrophils 9.4 thou/uL (1.40-6.50); %Basophils 0.5 % (0.0-1.0); %Eosinophils 0.2 % (0.0-10.0); %Lymphocytes 14.1 % (21.0-51.0); %Monocytes 3.7 % (0.0-10.0); %Neutrophils 81.6 % (42.0-75.0); Hemoglobin 10.5 g/dL (12.0-16.0); Mean Corpuscular HGB CONC 34.6 g/dL (32.0-36.0); Mean Corpuscular Hemoglobin 33.7 pg (27.0-31.0); Mean Corpuscular Volume 97.4 fL (78.0-98.0); Mean Platelet Volume 8.1 fL (7.4-10.4); Platelet Count 284 thou/uL (130-400); RBC Distribution Width 12.3 % (11.5-14.5); Red Blood Cell (RBC) Count 3.11 mill/uL (4.20-5.40); White Blood Cell (WBC) Count 11.5 thou/uL (4.8-10.8)
[2018-05-21 15:13] LABS: Bilirubin Negative (Negative); Blood, Urine Negative (Negative); Clarity CLEAR (Clear); Glucose, Urine (Dipstick) Negative (Negative); Leukocyte Trace (Negative); Nitrite Negative (Negative); Protein, Urine (Dipstick) 100 mg/dL (Neg-Trace); Specific Gravity, Urine 1.015 (1.002-1.036); Urobilinogen 0.2 mg/dL (0.2-1.0); pH, Urine 5.5 (5.0-9.0)
[2018-05-21 15:16] LABS: Hyaline Casts/LPF 4-6 HYALINE CAST LPF (0-3 Hyaline); Pathc Cast-AUWi Flag 1.01 (0-2.49); Squamous Epithelial 0-3 HPF (0-3); WBC/HPF 0-3 HPF (0-3)
[2018-05-21 15:18] LABS: Yeast-AUWi Flag 118.4 (0-25.0)
[2018-05-21 15:27] LABS: Bacteria/HPF Rare-Few HPF (None Seen)
[2018-05-21 15:28] LABS: Yeast-All Forms None Seen HPF (None Seen)
[2018-05-21 15:28] LABS: ALT (SGPT) 38 U/L (8-55); AST (SGOT) 38 U/L (5-34); Albumin 4.7 g/dL (3.5-5.0); Alkaline Phosphatase 186 U/L (40-150); Anion Gap 18 mmol/L (10-20); BUN (Urea Nitrogen) 27 mg/dL (7.0-18.7); Bilirubin, Total 0.7 mg/dL (0.2-1.2); Calc. Creatinine Clearance 0 mL/min (70-130); Calcium 8.4 mg/dL (7.8-10.44); Carbon Dioxide 14 mmol/L (22-29); Chloride 110 mmol/L (98-107); Estimated GFR-MDRD 26; Globulin 4.1 g/dL (2.4-3.5); Glucose 102 mg/dL (70-105); Lipase 76 U/L (8-78); Potassium 3.3 mmol/L (3.5-5.1); Protein, Total 8.8 g/dL (6.0-8.3); Sodium 139 mmol/L (136-145)
[2018-05-21 15:35] LABS: CKMB 0.6 ng/mL (0-6.6); Troponin I Less than 0.010 ng/mL (< 0.028)
[2018-05-21 17:45] LABS: Pregnancy Test - Urine (BHCG) Negative (Negative); Pregu Control Background? CLEAR/WHITE (CLR/WHITE); Pregu Control Bar Appear? YES (CONTROL BAR); Specific Gravity 1.015 (1.002-1.036)
[2018-05-21] MEDS ORDERED: diphenhydrAMINE 50 MG/ML VIAL ONE (17:46)
[2018-05-21] MEDS ORDERED: Haloperidol Lactate 5 MG/ML VIAL ONE (17:46)
--- NOTE | 2018-05-21 18:07 | RAD ---
SINGLE VIEW CHEST: Date: 05/21/18 COMPARISON: 04/23/18. HISTORY: Abdominal pain and chest pain. FINDINGS: Single view of the chest shows a normal sized cardiomediastinal silhouette. There is no evidence of c onsolidation, mass, or pleural effusion. The bones are unremarkable. IMPRESSION: No evidence of acute cardiopulmonary disease. POS: [facility]
--- NOTE | 2018-05-21 18:35 | CT ---
CT OF THE ABDOMEN AND PELVIS WITHOUT CONTRAST: Date: 05/21/18 COMPARISON: None. HISTORY: Gradual onset of abdominal pain that began on . Occasional radiation of the pain to her chest . TECHNIQUE: Multiple contiguous axial images were obtained in a CT of the abdomen and pelvis without contrast. Co lynne reformats were performed. FINDINGS: The left renal pelvis is enlarged, as well as enlargement of the calices of the left kidney. There is hyperdensity within some of the calices and within the renal pelvis consistent with blood in the lef t renal collecting system. No calcification is seen in either kidney. No right-sided hydronephrosis i s seen. No enlargement of the ureters seen. No calcifications are seen in the ureters. There are hype rdensities emanating from both kidneys, which likely represent hyperdense cysts. The patient is status post cholecystectomy. The liver, adrenal glands, spleen, and pancreas are unrem arkable. No abdominal or pelvic lymphadenopathy seen. The reproductive organs are unremarkable. The large and small bowel are unremarkable. The appendix is normal. Degenerative changes are seen in the spine. The visualized inferior thorax and abdominal wall soft ti ssues are unremarkable. IMPRESSION: 1. There has been interval development of blood in the left renal collecting system. This is of unce rtain significance. An underlying renal mass must be excluded. A CT of the abdomen per adrenal mass p rotocol versus a MRI of the abdomen per adrenal mass protocol recommended to evaluate better the kidn eys. 2. Bilateral hyperdense renal cysts. POS: [facility]
== END 2018-05-21 18:55 | disposition home or self-care (01) ==
LOC: ERS 14:33
DX: N28.89 Other specified disorders of kidney and ureter (principal); I10 Essential (primary) hypertension; F41.9 Anxiety disorder, unspecified
CPT/HCPCS: 71045; 74176; 80053; 81003; 81015; 81025; 82553; 83690; 84484; 85025; 85379; 93005; 96361; 96374; 96375; J1200; J1630; J2270

== ENCOUNTER 2019-03-28 13:56 | Outpatient (CLI) | payer OTHER ==
--- NOTE | 2019-03-28 15:48 | RAD ---
RIGHT FOOT 3 VIEWS: Date: 03/28/19 HISTORY: Right foot pain. FINDINGS/IMPRESSION: No fracture, dislocation, or bony destruction is seen. POS: [facility]
--- NOTE | 2019-03-28 15:49 | RAD ---
EXAM: RIGHT HIP TWO VIEWS: 03/28/19 HISTORY: Right hip pain. FINDINGS/IMPRESSION: No fracture, dislocation, or other significant acute osseous abnormality. POS: [facility]
--- NOTE | 2019-03-28 15:51 | RAD ---
EXAM: RIGHT ANKLE THREE VIEWS: 03/28/19 HISTORY: Right ankle pain. COMPARISON: 12/10/17. FINDINGS: Again noted are severe sclerotic and subchondral cystic changes of the entire talar dome possibly rel ated to old trauma or avascular necrosis or severe arthrosis changes. Appearance is stable from prior exam. No acute fracture or dislocation. 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 Secondary arthrosis changes. No acute fracture or dislocation. POS: [facility]
== END 2019-03-28 13:57 | disposition home or self-care (01) ==
LOC: RAD-FRANK 13:56
PROVIDERS: ATTEND Internal Medicine
DX: M25.571 Pain in right ankle and joints of right foot (principal); M79.671 Pain in right foot; M25.551 Pain in right hip; M19.271 Secondary osteoarthritis, right ankle and foot

== ENCOUNTER 2019-05-04 12:31 | Outpatient (CLI) | payer OTHER ==
--- NOTE | 2019-05-04 13:06 | RAD ---
Exam: Pelvis 1 view HISTORY: Disability evaluation. FINDINGS: Sacral alar are intact. Bony pelvis is intact. Contour of both femoral heads are maintained . Symmetric hip joint. IMPRESSION: Unremarkable one view pelvis.
--- NOTE | 2019-05-04 13:08 | RAD ---
Exam:2 views right hip HISTORY: Disability exam. COMPARISON: 03/28/2019 FINDINGS: Contour of the femoral head is maintained. Hip joint spaces preserved. IMPRESSION: Unremarkable right hip 2 views.
--- NOTE | 2019-05-04 13:50 | RAD ---
RIGHT ANKLE 2 VIEWS: HISTORY: Disability examination. FINDINGS: There are severe arthritic changes of the ankle. There is flattening and subchondral bony changes in volving the talar dome. Changes could be the sequelae of an insufficiency-type fracture. Osteophyti c changes are noted. Subtalar joint is normal. IMPRESSION: Marked arthritic changes of the ankle with large osteochondral lesion and flattening of the talar dom e. POS: [facility]
== END 2019-05-04 12:32 | disposition home or self-care (01) ==
LOC: BICRAD 12:31
PROVIDERS: ATTEND Internal Medicine
DX: Z02.71 Encounter for disability determination (principal); M19.071 Primary osteoarthritis, right ankle and foot; M24.171 Other articular cartilage disorders, right ankle
CPT/HCPCS: 72170

== ENCOUNTER 2019-09-14 16:20 | Emergency (ER) | payer OTHER ==
--- NOTE | 2019-09-14 18:41 | RAD ---
LEFT HIP TWO VIEWS: 09/14/19 HISTORY: Hip pain. Joint space is well preserved. No fracture or other findings. IMPRESSION: Unremarkable left hip. POS: [facility]
--- NOTE | 2019-09-14 18:42 | RAD ---
RIGHT HIP TWO VIEWS: 09/14/19 HISTORY: Hip pain. Joint space is well preserved. No fracture or other bony findings. IMPRESSION: Unremarkable right hip. POS: [facility]
[2019-09-14 18:56] LABS: #Basophils 0.1 thou/uL (0.0-0.2); #Eosinphils 0.2 thou/uL (0.0-0.7); #Lymphocytes 1.5 thou/uL (1.20-3.40); #Monocytes 0.6 thou/uL (0.11-0.59); #Neutrophils 4.2 thou/uL (1.40-6.50); %Basophils 1.2 % (0.0-1.0); %Eosinophils 2.7 % (0.0-10.0); %Lymphocytes 22.4 % (21.0-51.0); %Monocytes 9.1 % (0.0-10.0); %Neutrophils 64.5 % (42.0-75.0); Hemoglobin 10.2 g/dL (12.0-16.0); Mean Corpuscular HGB CONC 33.5 g/dL (32.0-36.0); Mean Corpuscular Volume 98.6 fL (78.0-98.0); Mean Platelet Volume 8.8 fL (7.4-10.4); Platelet Count 312 thou/uL (130-400); RBC Distribution Width 12.5 % (11.5-14.5); Red Blood Cell (RBC) Count 3.09 mill/uL (4.20-5.40); White Blood Cell (WBC) Count 6.6 thou/uL (4.8-10.8)
[2019-09-14 19:10] LABS: ALT (SGPT) 19 U/L (8-55); AST (SGOT) 45 U/L (5-34); Albumin 4.3 g/dL (3.5-5.0); Alkaline Phosphatase 149 U/L (40-110); Anion Gap 23 mmol/L (10-20); BUN (Urea Nitrogen) 28 mg/dL (7.0-18.7); Bilirubin, Total 0.3 mg/dL (0.2-1.2); CRP (Inflammatory) Less than 0.50 mg/dL (= or < 0.5); Calc. Creatinine Clearance 0 mL/min (70-130); Calcium 6.6 mg/dL (7.8-10.44); Carbon Dioxide 14 mmol/L (22-29); Chloride 112 mmol/L (98-107); Estimated GFR-MDRD 27; Glucose 67 mg/dL (70-105); Potassium 5.6 mmol/L (3.5-5.1); Protein, Total 8.3 g/dL (6.0-8.3); Sodium 143 mmol/L (136-145)
[2019-09-14 19:53] LABS: Acetaminophen Less than 6.0 mcg/mL (10.0-30.0); Alcohol Less than 10 mg/dL (Less than 10); CK (CPK) 399 U/L (29-168); Salicylate Less than 8.0 mg/dL (15.0-30.0)
[2019-09-14 20:19] LABS: Lactic Acid 1.9 mmol/L (0.5-2.2)
[2019-09-14 20:49] LABS: Actual Bicarbonate (HCO3a) 17.5 mEq/L (22-28); Analyzer IN Cardio ER; Base Excess (BEa) -6.8 mEq/L (-2.0 to +3.0); CO2 Tension 31.1 mmHg (35.0-45.0); Calcium, Ionized 0.83 mmol/L (1.12-1.30); Carboxyhemoglobin (COHb) 0.4 gm% (0.0-3.0); Hemoglobin (Hb) 9.9 g/dL (12.0-16.0); O2 Tension (PaO2) 93.5 mmHg (80.0-100.0); Potassium - ABG Lab 3.99 mmol/L (3.70-5.30); pH, Arterial 7.37 (7.35-7.45)
[2019-09-14 20:50] LABS: ALV-art Gradient 17.355 (0-20); Puncture Site LRA
[2019-09-14 21:02] LABS: Anion Gap 22 mmol/L (10-20); BUN (Urea Nitrogen) 27 mg/dL (7.0-18.7); Calc. Creatinine Clearance 0 mL/min (70-130); Calcium 6.7 mg/dL (7.8-10.44); Carbon Dioxide 15 mmol/L (22-29); Chloride 112 mmol/L (98-107); Estimated GFR-MDRD 27; Potassium 4.1 mmol/L (3.5-5.1); Sodium 145 mmol/L (136-145)
[2019-09-14 21:07] LABS: Glucose 55 mg/dL (70-105)
== END 2019-09-14 22:59 | disposition home or self-care (01) ==
LOC: ERS 16:20
DX: E87.2 Acidosis (principal); I12.9 Hypertensive chronic kidney disease with stage 1 through stage 4 chronic kidney disease, or unspecified chronic kidney disease; N18.9 Chronic kidney disease, unspecified; F41.9 Anxiety disorder, unspecified; Z79.899 Other long term (current) drug therapy
CPT/HCPCS: 36415; 80053; 80307; 82010; 82550; 82805; 83605; 85025; 86140

== ENCOUNTER 2022-01-13 10:19 | Outpatient (CLI) | payer OTHER | END 2022-01-13 10:20 | disposition home or self-care (01) | LOC: RAD-FRANK 10:19 | PROVIDERS: ATTEND Nurse Practitioner Family | DX: M25.571 Pain in right ankle and joints of right foot (principal) ==

== ENCOUNTER 2023-03-26 15:28 | Observation (INO) | payer OTHER, SELFPAY ==
[2023-03-26 16:06] LABS: #Monocytes 0.3 thou/uL (0.11-0.59); #Neutrophils 10.5 thou/uL (1.40-6.50); %Basophils 0.3 % (0.0-1.0); %Lymphocytes 6.9 % (21.0-51.0); %Monocytes 2.4 % (0.0-10.0); Hemoglobin 10.3 g/dL (12.0-16.0); Mean Corpuscular HGB CONC 29.9 g/dL (32.0-36.0); Mean Corpuscular Hemoglobin 29.2 pg (27.0-31.0); Mean Corpuscular Volume 97.7 fl (78.0-98.0); Mean Platelet Volume 11.3 fL (7.4-10.4); Platelet Count 252 10x3/uL (130-400); RBC Distribution Width 14.3 % (11.5-14.5); Red Blood Cell (RBC) Count 3.53 mill/uL (4.20-5.40); White Blood Cell (WBC) Count 11.7 10x3/uL (4.8-10.8)
[2023-03-26] MEDS ORDERED: Ondansetron PF 4 MG/2 ML Vial ONE ×2 (16:27→19:20)
[2023-03-26] MEDS ORDERED: Morphine 4 MG/ML VIAL ONE (16:27)
[2023-03-26 16:32] LABS: ALT (SGPT) 11 U/L (8-55); AST (SGOT) 19 U/L (5-34); Albumin 4.5 g/dL (3.5-5.0); Alkaline Phosphatase 128 U/L (40-110); Anion Gap 16 mmol/L (10-20); BUN (Urea Nitrogen) 38 mg/dL (9.8-20.1); Bilirubin, Total 0.2 mg/dL (0.2-1.2); Calc. Creatinine Clearance 0 mL/min (70-130); Calcium 9.7 mg/dL (7.8-10.44); Carbon Dioxide 20 mmol/L (22-29); Chloride 108 mmol/L (98-107); Estimated GFR 15; Globulin 3.6 g/dL (2.4-3.5); Glucose 128 mg/dL (70-105); Lipase 360 U/L (8-78); Potassium 5.1 mmol/L (3.5-5.1); Protein, Total 8.1 g/dL (6.0-8.3); Sodium 139 mmol/L (136-145)
[2023-03-26 17:35] LABS: BHCG - Serum POSITIVE (NEGATIVE); Pregs Control Background? CLEAR/WHITE (CLR/WHITE); Pregs Control Bar Appear? YES (CONTROL BAR)
[2023-03-26] MEDS ORDERED: Bupivacaine HCl 0.5%/Epinephrine 1:200,000/PF 30 ml Vial ONE (18:28)
[2023-03-26] MEDS ORDERED: Piperacillin/Tazobactam 4.5 GM VIAL ONE (18:32)
[2023-03-26 18:59] LABS: Bacteria/HPF None Seen HPF (None Seen); Bilirubin Negative (Negative); Blood, Urine Trace (Negative); Clarity Clear (Clear); Glucose, Urine (Dipstick) Normal (Negative); Ketone, Urine Negative (Negative); Leukocyte Negative Leu/uL (Negative); Nitrite Negative (Negative); Protein, Urine (Dipstick) 100 mg/dL (Neg-Trace); RBC/HPF 0-3 HPF (0-3); Squamous Epithelial 0-3 HPF (0-3); Urobilinogen Normal mg/dL (Less than 2); WBC/HPF 0-3 HPF (0-3)
[2023-03-26] MEDS ORDERED: fentaNYL PF 100 MCG/2 ML SYRINGE ONE (19:05)
[2023-03-26 19:06] LABS: Amphetamine Not Detected (NotDetected); Barbiturates Screen Not Detected (NotDetected); Benzodiazepine Screen Not Detected (NotDetected); Cocaine Metabolite Screen Not Detected (NotDetected); Methadone Not Detected (NotDetected); Methamphetamine Not Detected (NotDetected); Opiate Screen Detected (NotDetected); Oxycodone Screen Not Detected (NotDetected); Phencyclidine (PCP) Not Detected (NotDetected); THC/Cannabinoid Screen Not Detected (NotDetected); Tricyclic Screen Not Detected (NotDetected)
[2023-03-26] MEDS ORDERED: Rocuronium Bromide 10 MG/ML (10ML VIAL) ONE (19:20)
[2023-03-26] MEDS ORDERED: PROPOFOL 200 MG/20 ML VIAL ONE (19:20)
[2023-03-26] MEDS ORDERED: PHENYLEPHRINE-NS 100 MCG/ML 10 ML SYRINGE ONE (19:20)
[2023-03-26] MEDS ORDERED: Glycopyrrolate 0.2 MG/ML 5 ML SYRINGE ONE (19:20)
[2023-03-26] MEDS ORDERED: Dexamethasone 20 MG/5 ML VIAL ONE (19:20)
[2023-03-26] MEDS ORDERED: NEOSTIGMINE 3 MG/3 ML SYR 3 MG/3 ML SYRINGE ONE (19:20)
[2023-03-26] MEDS ORDERED: Lidocaine 1% PF 5 ML VIAL ONE (19:20)
[2023-03-26] MEDS ORDERED: Ipratropium/Albuterol 3 ML NEB NEB PRN (19:29)
[2023-03-26] MEDS ORDERED: Morphine 2 MG/ML VIAL SLOW IVP PRN (19:29)
[2023-03-26] MEDS ORDERED: Ondansetron PF 4 MG/2 ML Vial IVP PRN (19:29)
[2023-03-26] MEDS ORDERED: hydrALAZINE 20 MG/ML VIAL SLOW IVP PRN (19:29)
[2023-03-26] MEDS ORDERED: Promethazine HCl 25 MG/ML VIAL IM PRN ×2 (19:29→20:28)
[2023-03-26] MEDS ORDERED: Acetaminophen 325 MG TAB PO PRN (19:29)
[2023-03-26] MEDS ORDERED: Lactated Ringer's 1,000 ML IV SCH (19:30)
[2023-03-26] MEDS ORDERED: fentaNYL 50 mcg/mL 1 mL Vial ONE (20:28)
[2023-03-26] MEDS ORDERED: Ondansetron HCl/PF 4 MG/2 ML Vial IVP PRN (20:28)
[2023-03-26] MEDS ORDERED: Famotidine/PF 20 mg/2ml Vial SLOW IVP SCH (21:00)
[2023-03-26] MEDS ORDERED: Famotidine 20 MG TAB PO SCH (21:00)
[2023-03-26 21:33] VITALS: BMI 31.2
[2023-03-26] MEDS: HYDROcodone/Acetaminophen 5/325 mg Tablet PO PRN (22:24)
[2023-03-26] MEDS: Piperacillin/Tazobactam 3.375 GM in Sodium Chloride 0.9% 100 ML IVPB SCH (22:27)
[2023-03-27] MEDS: HYDROcodone/Acetaminophen 5/325 mg Tablet PO PRN (05:37)
[2023-03-27] MEDS: Piperacillin/Tazobactam 3.375 GM in Sodium Chloride 0.9% 100 ML IVPB SCH (05:38)
[2023-03-27 06:50] LABS: Anion Gap 16 mmol/L (10-20); BUN (Urea Nitrogen) 30 mg/dL (9.8-20.1); Calc. Creatinine Clearance 31 mL/min (70-130); Calcium 8.6 mg/dL (7.8-10.44); Carbon Dioxide 17 mmol/L (22-29); Chloride 111 mmol/L (98-107); Estimated GFR 17; Glucose 134 mg/dL (70-105); Lipase 61 U/L (8-78); Potassium 4.6 mmol/L (3.5-5.1); Sodium 139 mmol/L (136-145)
[2023-03-27 11:54] VITALS: BP 117/79; TEMP 97.8
== END 2023-03-27 13:05 | disposition home or self-care (01) ==
LOC: ERS 15:28 → SDC/OP 19:26 → MSONC 21:20 → SDC/OP 21:52
PROVIDERS: ADMIT Surgery; ATTEND Surgery
PROC: 0DTJ4ZZ Resection of Appendix, Percutaneous Endoscopic Approach (ICD-10-PCS; principal; 2023-03-26)
DX: K35.80 Unspecified acute appendicitis (principal); K38.1 Appendicular concretions; I12.9 Hypertensive chronic kidney disease with stage 1 through stage 4 chronic kidney disease, or unspecified chronic kidney disease; N18.30 Chronic kidney disease, stage 3 unspecified; E78.00 Pure hypercholesterolemia, unspecified; Z79.899 Other long term (current) drug therapy
CPT/HCPCS: 36415; 71045; 74177; 80048; 80053; 80306; 81003; 81015; 83690; 84484; 84702; 84703; 85025; 88304; 93005; 96361; 96365; 96368; 96375; A4649; G0378; J1100; J2270; J2405; J2543; J2704; J3010; J3490

== ENCOUNTER 2025-05-05 21:35 | Inpatient (IN) | payer OTHER ==
[2025-05-05] MEDS ORDERED: Acetaminophen 500 MG TAB ONE (22:17)
[2025-05-05 22:50] LABS: #Basophils Less than 0.03 10x3/uL (0.0-0.2); #Eosinophils 0.15 10x3/uL (0.0-0.7); #Monocytes 0.62 10x3/uL (0.11-0.59); #Neutrophils 4.98 10x3/uL (1.40-6.50); %Basophils 0.3 % (0.0-1.0); %Lymphocytes 22.3 % (21.0-51.0); %Monocytes 8.3 % (0.0-10.0); %Neutrophils 66.7 % (42.0-75.0); Hematocrit 31.8 % (36.0-47.0); Hemoglobin 9.8 g/dL (12.0-16.0); Mean Corpuscular HGB CONC 30.8 g/dL (32.0-36.0); Mean Corpuscular Hemoglobin 29.8 pg (27.0-31.0); Mean Corpuscular Volume 96.7 fL (78.0-98.0); Mean Platelet Volume 10.4 fL (7.4-10.4); Platelet Count 248 10x3/uL (130-400); RBC Distribution Width 14.8 % (11.5-14.5); Red Blood Cell (RBC) Count 3.29 mill/uL (4.20-5.40); White Blood Cell (WBC) Count 7.46 10x3/uL (4.8-10.8)
[2025-05-05 23:03] LABS: BHCG - Serum Negative (NEGATIVE); Pregs Control Background? CLEAR/WHITE (CLR/WHITE); Pregs Control Bar Appear? YES (CONTROL BAR)
[2025-05-05 23:12] LABS: ALT (SGPT) 10 U/L (Less than 34); AST (SGOT) 16 U/L (11-34); Alkaline Phosphatase 120 U/L (40-110); Anion Gap 15 mmol/L (10-20); BUN (Urea Nitrogen) 30 mg/dL (9.8-20.1); Bilirubin, Total 0.2 mg/dL (0.3-1.2); Calc. Creatinine Clearance 0 mL/min (70-130); Calcium 9.4 mg/dL (7.8-10.44); Carbon Dioxide 16 mmol/L (22-29); Chloride 116 mmol/L (98-107); Estimated GFR 14; Globulin 3.4 g/dL (2.4-3.5); Glucose 87 mg/dL (70-105); Magnesium 1.8 mg/dL (1.6-2.6); Potassium 4.7 mmol/L (3.5-5.1); Protein, Total 7.4 g/dL (6.0-8.3); Sodium 142 mmol/L (136-145)
[2025-05-05 23:16] LABS: Troponin I Less than 0.010 ng/mL (< 0.028)
[2025-05-05 23:22] LABS: Bacteria/HPF None Seen HPF (None Seen); Bilirubin Negative (Negative); Blood, Urine Negative (Negative); CAUTI Indications for Culture Dysuria,urgency,freq; Clarity Clear (Clear); Glucose, Urine (Dipstick) Normal (Negative); Ketone, Urine Negative (Negative); Leukocyte 25 Leu/uL (Negative); Nitrite Negative (Negative); Protein, Urine (Dipstick) Negative (Neg-Trace); RBC/HPF None Seen HPF (0-3); Specific Gravity, Urine 1.006 (1.002-1.036); Squamous Epithelial 0-3 HPF (0-3); Urobilinogen Normal mg/dL (Less than 2); WBC/HPF 0-3 HPF (0-3); pH, Urine 5.5 (5.0-9.0)
[2025-05-05 23:23] LABS: Urine Culture Reflex No No
[2025-05-05 23:29] LABS: Amphetamine Negative (Negative); Barbiturates Screen Negative (Negative); Benzodiazepine Screen Negative (Negative); Cocaine Metabolite Screen Negative (Negative); Methadone Negative (Negative); Methamphetamine Negative (Negative); Opiate Screen Negative (Negative); Oxycodone Screen Negative (Negative); Phencyclidine (PCP) Negative (Negative); THC/Cannabinoid Screen Negative (Negative); Tricyclic Screen Negative (Negative)
[2025-05-05] MEDS ORDERED: Acetaminophen 325 MG TAB PO PRN (23:40)
[2025-05-05] MEDS ORDERED: Calcium Carbonate 500 MG ChewTAB PO PRN (23:40)
[2025-05-05] MEDS ORDERED: Senokot S 8.6-50 MG TAB PO PRN (23:40)
[2025-05-05] MEDS ORDERED: Ondansetron PF 4 MG/2 ML Vial IVP PRN (23:40)
[2025-05-06] MEDS ORDERED: Enoxaparin 30 MG (0.3 mL) SYRINGE ONE (00:10)
[2025-05-06] MEDS ORDERED: Enoxaparin 80 MG (0.8 mL) SYRINGE ONE (00:10)
[2025-05-06 01:08] VITALS: BMI 36.1
[2025-05-06 05:13] LABS: #Basophils 0.03 10x3/uL (0.0-0.2); #Eosinophils 0.17 10x3/uL (0.0-0.7); #Monocytes 0.65 10x3/uL (0.11-0.59); #Neutrophils 4.46 10x3/uL (1.40-6.50); %Basophils 0.4 % (0.0-1.0); %Eosinophils 2.2 % (0.0-10.0); %Lymphocytes 29.8 % (21.0-51.0); %Monocytes 8.6 % (0.0-10.0); %Neutrophils 58.7 % (42.0-75.0); Hematocrit 33.3 % (36.0-47.0); Mean Corpuscular Hemoglobin 30.2 pg (27.0-31.0); Mean Corpuscular Volume 100.6 fL (78.0-98.0); Mean Platelet Volume 10.5 fL (7.4-10.4); Platelet Count 221 10x3/uL (130-400); RBC Distribution Width 15.1 % (11.5-14.5); Red Blood Cell (RBC) Count 3.31 mill/uL (4.20-5.40); White Blood Cell (WBC) Count 7.59 10x3/uL (4.8-10.8)
[2025-05-06 05:31] LABS: ALT (SGPT) 9 U/L (Less than 34); AST (SGOT) 17 U/L (11-34); Albumin 3.7 g/dL (3.1-4.5); Alkaline Phosphatase 120 U/L (40-110); Anion Gap 18 mmol/L (10-20); BUN (Urea Nitrogen) 31 mg/dL (9.8-20.1); Bilirubin, Total 0.2 mg/dL (0.3-1.2); Calc. Creatinine Clearance 31 mL/min (70-130); Calcium 9.5 mg/dL (7.8-10.44); Carbon Dioxide 16 mmol/L (22-29); Chloride 114 mmol/L (98-107); Estimated GFR 14; Globulin 3.1 g/dL (2.4-3.5); Glucose 86 mg/dL (70-105); Magnesium 1.8 mg/dL (1.6-2.6); Potassium 4.4 mmol/L (3.5-5.1); Protein, Total 6.8 g/dL (6.0-8.3); Sodium 144 mmol/L (136-145)
[2025-05-06 05:33] LABS: Troponin I Less than 0.010 ng/mL (< 0.028)
[2025-05-06] MEDS ORDERED: Gabapentin 100 MG CAP PO SCH (09:00)
[2025-05-06] MEDS: Heparin 5,000 UNITS/ML VIAL SC SCH (09:24)
[2025-05-06] MEDS: Calcitriol 0.25 MCG CAP PO SCH (09:24)
[2025-05-06] MEDS: Sodium Bicarbonate Tab 325 MG TAB PO SCH (09:24)
[2025-05-06] MEDS: Amlodipine 5 MG TAB PO SCH (09:25)
[2025-05-06] MEDS: Gabapentin 300 MG CAP PO SCH (09:25)
[2025-05-06] MEDS: Metoprolol Tartrate 25 MG TAB PO SCH (09:25)
[2025-05-06] MEDS: Sertraline 100 MG TAB PO SCH (09:25)
[2025-05-06] MEDS: Morphine 2 MG/ML VIAL SLOW IVP PRN (17:56)
[2025-05-06] MEDS: Atorvastatin Calcium 40 MG TAB PO SCH (20:09)
[2025-05-07 05:23] LABS: #Basophils 0.03 10x3/uL (0.0-0.2); #Eosinophils 0.14 10x3/uL (0.0-0.7); #Monocytes 0.66 10x3/uL (0.11-0.59); #Neutrophils 4.53 10x3/uL (1.40-6.50); %Basophils 0.4 % (0.0-1.0); %Eosinophils 1.9 % (0.0-10.0); %Lymphocytes 26.7 % (21.0-51.0); %Neutrophils 61.7 % (42.0-75.0); Hematocrit 31.8 % (36.0-47.0); Hemoglobin 9.7 g/dL (12.0-16.0); Mean Corpuscular HGB CONC 30.5 g/dL (32.0-36.0); Mean Corpuscular Hemoglobin 29.8 pg (27.0-31.0); Mean Corpuscular Volume 97.8 fL (78.0-98.0); Mean Platelet Volume 10.6 fL (7.4-10.4); Platelet Count 216 10x3/uL (130-400); RBC Distribution Width 15.1 % (11.5-14.5); Red Blood Cell (RBC) Count 3.25 mill/uL (4.20-5.40); White Blood Cell (WBC) Count 7.34 10x3/uL (4.8-10.8)
[2025-05-07 05:38] LABS: Anion Gap 13 mmol/L (10-20); BUN (Urea Nitrogen) 31 mg/dL (9.8-20.1); Calc. Creatinine Clearance 31 mL/min (70-130); Calcium 9.3 mg/dL (7.8-10.44); Carbon Dioxide 20 mmol/L (22-29); Chloride 115 mmol/L (98-107); Estimated GFR 14; Glucose 98 mg/dL (70-105); Magnesium 1.7 mg/dL (1.6-2.6); Potassium 4.6 mmol/L (3.5-5.1); Sodium 143 mmol/L (136-145)
[2025-05-07 11:41] VITALS: BP 122/86; TEMP 98
== END 2025-05-07 18:35 | disposition home or self-care (01) | DRG 74 ==
LOC: ERS 21:35 → SUATTDRO 21:35 → OBS 23:39 → OBSVTOIN 05-06 13:36
PROVIDERS: ADMIT Internal Medicine; ATTEND Internal Medicine
DX: G62.9 Polyneuropathy, unspecified (principal); N18.4 Chronic kidney disease, stage 4 (severe); E87.20 Acidosis, unspecified; R07.89 Other chest pain; E87.8 Other disorders of electrolyte and fluid balance, not elsewhere classified; E78.5 Hyperlipidemia, unspecified; I12.9 Hypertensive chronic kidney disease with stage 1 through stage 4 chronic kidney disease, or unspecified chronic kidney disease; E66.9 Obesity, unspecified; F39 Unspecified mood [affective] disorder; Z79.899 Other long term (current) drug therapy; Z68.36 Body mass index [BMI] 36.0-36.9, adult
CPT/HCPCS: 36415; 71046; 78451; 80048; 80053; 80306; 81001; 83735; 84484; 84703; 85025; 85379; 93005; 93306; 96372; A9540; G0378; J1644; J1650; J2272

== ENCOUNTER 2025-06-16 16:37 | Emergency (ER) | payer OTHER ==
[2025-06-16 17:56] LABS: #Basophils 0.03 10x3/uL (0.0-0.2); #Eosinophils 0.19 10x3/uL (0.0-0.7); #Monocytes 0.86 10x3/uL (0.11-0.59); #Neutrophils 5.64 10x3/uL (1.40-6.50); %Basophils 0.4 % (0.0-1.0); %Eosinophils 2.2 % (0.0-10.0); %Lymphocytes 21.0 % (21.0-51.0); %Monocytes 10.1 % (0.0-10.0); %Neutrophils 66.1 % (42.0-75.0); Hematocrit 31.7 % (36.0-47.0); Hemoglobin 9.7 g/dL (12.0-16.0); Mean Corpuscular Hemoglobin 29.7 pg (27.0-31.0); Mean Corpuscular Volume 96.9 fL (78.0-98.0); Platelet Count 234 10x3/uL (130-400); Red Blood Cell (RBC) Count 3.27 mill/uL (4.20-5.40); White Blood Cell (WBC) Count 8.53 10x3/uL (4.8-10.8)
[2025-06-16] MEDS ORDERED: Ondansetron PF 4 MG/2 ML Vial ONE (18:01)
[2025-06-16] MEDS ORDERED: Pantoprazole 40 MG VIAL ONE (18:01)
[2025-06-16 18:16] LABS: ALT (SGPT) 10 U/L (Less than 34); AST (SGOT) 20 U/L (11-34); Albumin 3.9 g/dL (3.1-4.5); Alkaline Phosphatase 134 U/L (40-110); Anion Gap 15 mmol/L (10-20); BUN (Urea Nitrogen) 40 mg/dL (9.8-20.1); Bilirubin, Total 0.3 mg/dL (0.3-1.2); Calc. Creatinine Clearance 0 mL/min (70-130); Calcium 9.2 mg/dL (7.8-10.44); Carbon Dioxide 20 mmol/L (22-29); Chloride 112 mmol/L (98-107); Globulin 3.5 g/dL (2.4-3.5); Glucose 66 mg/dL (70-105); Lipase 60 U/L (8-78); Potassium 4.8 mmol/L (3.5-5.1); Sodium 142 mmol/L (136-145)
[2025-06-16 18:20] LABS: Troponin I Less than 0.010 ng/mL (< 0.028)
[2025-06-16 18:48] LABS: Bacteria/HPF None Seen HPF (None Seen); CAUTI Indications for Culture Acute Hematuria; Glucose, Urine (Dipstick) Normal (Negative); Leukocyte Negative Leu/uL (Negative); Protein, Urine (Dipstick) Negative (Neg-Trace); RBC/HPF None Seen HPF (0-3); Specific Gravity, Urine 1.008 (1.002-1.036); WBC/HPF 0-3 HPF (0-3)
[2025-06-16 18:55] LABS: Urine Culture Reflex No No
[2025-06-17 15:23] LABS: Chlamydia by PCR, Vaginal Swab Not Detected (NotDetected); GC by PCR, Vaginal Swab Not Detected (NotDetected); Tric.vaginalis PCR,Vaginal Sw Not Detected (NotDetected)
== END 2025-06-16 19:40 | disposition home or self-care (01) ==
LOC: ERS 16:37
DX: R10.9 Unspecified abdominal pain (principal); I12.9 Hypertensive chronic kidney disease with stage 1 through stage 4 chronic kidney disease, or unspecified chronic kidney disease; N18.9 Chronic kidney disease, unspecified; E78.5 Hyperlipidemia, unspecified; Z79.899 Other long term (current) drug therapy
CPT/HCPCS: 71045; 74176; 80053; 81001; 83690; 84484; 85025; 87480; 87491; 87510; 87591; 87660; 87661; 93005; 96374; 96375; J2270; J2405; J2470